=== PATIENT | female | born 1945 | race Two or more races ===

== ENCOUNTER 2021-07-08 05:50 | Day surgery (SDC) | payer OTHER | END 2021-07-08 10:40 | disposition home or self-care (01) | LOC: AMB-ENDOS 05:50 | PROVIDERS: ATTEND Colon & Rectal Surgery | DX: C18.0 Malignant neoplasm of cecum (principal) ==

== ENCOUNTER 2021-07-16 08:15 | Inpatient (IN) | payer OTHER ==
[~2021-07-16] VITALS: Ht 152.4 cm; Wt 56.7 kg
[2021-07-16] MEDS ORDERED: ROSUVAST PO (10:38)
[2021-07-20] MEDS ORDERED: ROSUVASTATIN CA20 MG (07:50)
[2021-07-20] MEDS ORDERED: RISEDRONATE SO150 MG (07:50)
[2021-07-20] MEDS ORDERED: ATARAX10 MG (07:50)
== END 2021-07-24 14:18 | disposition home or self-care (01) | DRG 331 ==
LOC: SURH 07-20 05:55 → O/R 07-20 05:55 → SURH 07-20 07:00
PROVIDERS: ADMIT Colon & Rectal Surgery; ATTEND Colon & Rectal Surgery
PROC: 07BB4ZZ Excision of Mesenteric Lymphatic, Percutaneous Endoscopic Approach (ICD-10-PCS; 2021-07-20)
PROC: 4A1BXSH Monitoring of Gastrointestinal Vascular Perfusion using Indocyanine Green Dye, External Approach (ICD-10-PCS; 2021-07-20)
PROC: 4A12X4Z Monitoring of Cardiac Electrical Activity, External Approach (ICD-10-PCS; 2021-07-20)
PROC: 0DTF4ZZ Resection of Right Large Intestine, Percutaneous Endoscopic Approach (ICD-10-PCS; principal; 2021-07-20 07:00)
DX: C18.0 Malignant neoplasm of cecum (principal); K63.5 Polyp of colon; R59.0 Localized enlarged lymph nodes; R73.03 Prediabetes; Z20.822 Contact with and (suspected) exposure to COVID-19